=== PATIENT | male | born 1935 | race Caucasian/White ===

== ENCOUNTER 2019-01-04 06:28 | Day surgery (SDC) | payer MEDICARE, BC ==
[~2019-01-04] VITALS: Ht 167.6 cm; Wt 88.0 kg
[2019-01-04] MEDS ORDERED: SODIUM CHLORIDE 0.9% 1,000 ML IV SCH (06:48)
[2019-01-04] MEDS ORDERED: ASPI-496 PO (07:20)
[2019-01-04] MEDS ORDERED: METO25TA91 PO (07:20)
[2019-01-04] MEDS ORDERED: TERA5CAP3 PO (07:20)
[2019-01-04] MEDS ORDERED: OMEG1CAP34 PO (07:20)
[2019-01-04] MEDS ORDERED: LORA10CA PO (07:20)
[2019-01-04] MEDS ORDERED: ASCO500T8 PO (07:20)
[2019-01-04] MEDS ORDERED: CYAN1TAB29 PO (07:20)
[2019-01-04] MEDS ORDERED: MAGN400T7 PO (07:20)
[2019-01-04] MEDS ORDERED: TADA5TAB2 PO (07:20)
[2019-01-04] MEDS ORDERED: ESOM40CA PO (07:20)
[2019-01-04] MEDS ORDERED: ALLO100T30 PO (07:20)
[2019-01-04] MEDS ORDERED: LIDOCAINE 2%, 20ML ONE (07:40)
[2019-01-04] MEDS ORDERED: FENTANYL PF 100 MCG/2ML ONE (07:40)
[2019-01-04] MEDS ORDERED: ISOPROTERENOL 0.2MG/ML, 5ML ONE (07:40)
[2019-01-04] MEDS ORDERED: MIDAZOLAM 1 MG/ML, 5ML ONE (07:40)
[2019-01-04] MEDS ORDERED: ADENOSINE 6 MG/2 ML ONE (07:40)
[2019-01-04] MEDS ORDERED: HEPARIN 1,000 UNITS/ML, 10ML ONE (07:40)
[2019-01-04] MEDS ORDERED: ACETAMINOPHEN 325 MG TABLET PO PRN (10:30)
[2019-01-04] MEDS ORDERED: TEMPLATE NON-FORMULARY MED. (Tadalafil** (Cialis**) 5 MG) PO SCH (10:30)
[2019-01-04] MEDS ORDERED: TERAZOSIN 5MG CAPSULE PO SCH (21:00)
[2019-01-05] MEDS ORDERED: FISH OIL PO SCH (09:00)
[2019-01-05] MEDS ORDERED: ALLOPURINOL 100 MG TABLET PO SCH (09:00)
[2019-01-05] MEDS ORDERED: TEMPLATE NON-FORMULARY MED. (Cyanocobalamin/Folic Acid** (Vitamin B12-Folic Acid Tablet**) PO SCH (09:00)
[2019-01-05] MEDS ORDERED: TEMPLATE NON-FORMULARY MED. (Esomeprazole Magnesium** (Nexium**) 40 MG) PO SCH (09:00)
[2019-01-05] MEDS ORDERED: OMEGA PO SCH (09:00)
[2019-01-05] MEDS ORDERED: TEMPLATE NON-FORMULARY MED. (Magnesium Oxide** 400 MG) PO SCH (09:00)
[2019-01-05] MEDS ORDERED: ASPIRIN 81 MG TABLET EC PO SCH (09:00)
[2019-01-05] MEDS ORDERED: ASCORBIC ACID 500 MG TABLET PO SCH (09:00)
[2019-01-05] MEDS ORDERED: FATTY ACIDS PO SCH (09:00)
[2019-01-05] MEDS ORDERED: TEMPLATE NON-FORMULARY MED. (Loratadine** (Claritin**) 10 MG) PO SCH (09:00)
[2019-01-05] MEDS ORDERED: [UNRECOGNIZED DRUG - OTHER] PO SCH (09:00)
== END 2019-01-04 14:35 | disposition home or self-care (01) ==
LOC: CACL 06:28
PROVIDERS: ATTEND Internal Medicine Cardiovascular Disease
DX: I47.1 Supraventricular tachycardia (principal); I10 Essential (primary) hypertension; G47.30 Sleep apnea, unspecified; K21.0 Gastro-esophageal reflux disease with esophagitis; M19.90 Unspecified osteoarthritis, unspecified site; Z79.82 Long term (current) use of aspirin; Z79.899 Other long term (current) drug therapy
CPT/HCPCS: 93613; 93621; 93623; 93653; 99156; 99157; C1730; C1766; C1894; C2630; J2250; J3010; J0153; J1644

== ENCOUNTER → 2019-06-02 | Outpatient (CLI) | payer MEDICARE, BC ==
[~2019-06-02] MED LIST: ALLO100T30 PO; ASCO500T8 PO; ASPI-496 PO; CYAN1TAB29 PO; ESOM40CA PO; LORA10CA PO; MAGN400T9 PO; METO25TA91 PO; OMEG1CAP34 PO; TADA5TAB2 PO; TERA5CAP3 PO
== END | disposition home or self-care (01) ==
LOC: ROC 09:25
PROVIDERS: ATTEND Radiology Radiation Oncology
DX: C61 Malignant neoplasm of prostate (principal); M19.90 Unspecified osteoarthritis, unspecified site; I10 Essential (primary) hypertension; I48.0 Paroxysmal atrial fibrillation; Z88.8 Allergy status to other drugs, medicaments and biological substances; Z87.891 Personal history of nicotine dependence
CPT/HCPCS: G0463

== ENCOUNTER 2019-07-05 07:25 | Outpatient (CLI) | payer MEDICARE, BC ==
[2019-07-05] MEDS ORDERED: LIDOCAINE/PF 1%, 30ML ONE (07:30)
[2019-07-05] MEDS ORDERED: MIDAZOLAM 1 MG/ML, 5ML ONE (07:30)
[2019-07-05] MEDS ORDERED: FENTANYL PF 100 MCG/2ML ONE (07:30)
== END 2019-07-05 23:59 | disposition home or self-care (01) ==
LOC: ROC 07:25
PROVIDERS: ATTEND Radiology Radiation Oncology
DX: C61 Malignant neoplasm of prostate (principal)
CPT/HCPCS: 55876; 76942; 77332; 99156; A4648; J2250; J3010

== ENCOUNTER → 2019-07-11 | Outpatient (CLI) | payer MEDICARE, BC | END | disposition home or self-care (01) | LOC: CFH 09:53 | PROVIDERS: ATTEND Radiology Radiation Oncology | DX: Z12.5 Encounter for screening for malignant neoplasm of prostate (principal) | CPT/HCPCS: 72195 ==

== ENCOUNTER → 2019-11-14 | Outpatient (CLI) | payer MEDICARE, BC | END | disposition home or self-care (01) | LOC: ROC 08:14 | PROVIDERS: ATTEND Radiology Radiation Oncology | DX: C61 Malignant neoplasm of prostate (principal) | CPT/HCPCS: 99213; G0463 ==